=== PATIENT | female | born 1975 | race Caucasian/White ===

== ENCOUNTER → 2023-07-18 15:20 | Outpatient (REF) | payer OTHER, SELFPAY | LOC: RAD 15:20 | PROVIDERS: ATTENDING PHYSICIAN Obstetrics & Gynecology; FAMILY PHYSICIAN Family Medicine | DX: Z12.31 Encounter for screening mammogram for malignant neoplasm of breast (principal); N92.1 Excessive and frequent menstruation with irregular cycle | CPT/HCPCS: 76830; 76856 ==

== ENCOUNTER → 2023-07-18 16:46 | Outpatient (REF) | payer OTHER, SELFPAY | LOC: WDC 16:46 | PROVIDERS: ATTENDING PHYSICIAN Obstetrics & Gynecology; FAMILY PHYSICIAN Family Medicine | DX: Z12.31 Encounter for screening mammogram for malignant neoplasm of breast (principal); N92.4 Excessive bleeding in the premenopausal period | CPT/HCPCS: 77063; 77067 ==